=== PATIENT | male | born 1995 | race Caucasian/White ===

== ENCOUNTER 2022-09-24 17:50 | Emergency (ER) | payer MEDICAID, SELFPAY ==
[2022-09-24 17:52] VITALS: BP 127/94; PULSE 88; RESP 14; TEMP 36.1; O2SAT 99
--- NOTE | 2022-09-24 18:43 | EKG12_ITS ---
Test Reason : Blood Pressure : / mmHG Vent. Rate : 083 BPM Atrial Rate : 083 BPM P-R Int : 158 ms QRS Dur : 110 ms QT Int : 396 ms P-R-T Axes : 029 058 025 degrees QTc Int : 465 ms Normal sinus rhythm Normal ECG Confirmed by DAVID ROBB, EVELYN ([id number]), online content editor ASAD CONTI ([id number]) on 09/25/2022 11:28:45 AM Referred By: NATACHA Confirmed By:EVELYN HERNANDEZ MD
--- NOTE | 2022-09-24 18:44 | EX.ED.DYSGE1 ---
HPI History of Present Illness Chief Complaint: Syncope Detail of Chief Complaint: Syncope Informant: patient Narrative Narrative: That Kahlil presents to the emergency department after sustaining a syncopal episode while at home. 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 Patient had not eaten today. He remembers driving home and talking to his grandmother on the phone and felt perfectly fine until he got home. When he got out of the vehicle he noted that he felt lightheaded and somewhat nauseated. Patient felt like he was dehydrated so he went upstairs and got a couple water and then got some fresh water in it. Patient then felt more nauseated and went to the bathroom where he vomited into the toilet and then remembers waking up on the floor. Patient was found by girlfriend and family members who called squad. They noted that there was blood in the toilet. Patient tells me that he feels fine and he has not been ill leading up to today. He denies any abdominal pain. He had no further vomiting. Patient has had 1 other episode of syncope when he was young child and they attributed to dehydration. Patient denies chest pain or racing heart. Prior similar symptoms: Yes PFSH PFSH Medical History (Updated 09/24/22 @ 20:[address] Austin Kerns, DO) Torsion, testicular Home Medications No Known/Unobtainable [No Known Home Medications] 06/26/16 [History Last Taken Unknown] Allergy/AdvReac Type Severity Reaction Status Date / Time No Known Allergies Allergy Verified 09/24/22 17:51 Surgical History (Updated 09/24/22 @ 18:21 by Janay Sanders) Hx of tonsillectomy Social History Smoking Status: Never smoker ROS ROS ED Review of Systems ROS Unobtainable: other Constitutional Constitutional ED: Reports lethargy; Denies chills, fever(s), sweats or weight loss Eyes Eyes: Denies blurry vision, change in vision or diplopia ENT ENT ED: Denies rhinorrhea or sore throat Cardiovascular Cardiovascular: Denies chest pain, orthopnea or racing heartbeat Respiratory/Chest Respiratory/Chest: Denies cough, dyspnea, dyspnea on exertion, orthopnea or sputum Gastrointestinal Gastrointestinal: Reports nausea and vomiting; Denies abdominal pain or diarrhea Genitourinary Genitourinary ED: Denies dysuria, hematuria or urinary frequency Musculoskeletal Musculoskeletal: Denies arthralgias, back pain, myalgias or neck pain Integumentary Denies abscess, Abrasions or rash Neurologic Neurologic: Reports other Details: Syncopal episode ; Denies headache(s) or weakness Psychiatric Psychiatric: Denies anxiety, depression or suicidal thoughts Endocrine Endocrinology: Denies polydipsia, polyphagia or polyuria Hematologic/Lymphatic Hematologic/Lymphatic: Denies easy bleeding, easy bruising or lymphadenopathy Allergic/Immunologic Allergic/Immunologic ED: Denies mouth swelling, tongue swelling or urticaria EXAM Physical Exam Const Vital Signs: 09/24/22 17:52 09/24/22 18:22 09/24/22 20:08 Temperature 97 F L Temperature Source Temporal Pulse Rate 88 Pulse Rate [Lying] 80 Pulse Rate [Sitting (for 1 minute prior to obtaining)] 82 Pulse Rate [Standing (for 1 minute prior to obtaining)] 84 Respiratory Rate 14 Respiratory Pattern Normal Blood Pressure 127/94 H Blood Pressure [Lying] 109/68 Blood Pressure [Sitting (for 1 minute prior to obtaining)] 113/72 Blood Pressure [Standing (for 1 minute prior to obtaining)] 109/73 Blood Pressure Mean 105 Blood Pressure Mean [Lying] 81 Blood Pressure Mean [Sitting (for 1 minute prior to obtaining)] 85 Blood Pressure Mean [Standing (for 1 minute prior to obtaining)] 85 Pulse Ox 99 Oxygen Delivery Method Room Air Positive well nourished and well developed General Appearance ED: well developed and NAD HEENT Reports TM's clear and moist mucous membranes normocephalic and atraumatic; Negative for trauma or tenderness Tympanic Membrane ED: Yes TM's clear Eyes PERRL and EOMs intact bilaterally General Eye ED: Negative for pale conjunctiva or scleral icterus Neck no lymphadenopathy, supple and no JVD General: Negative for tenderness Chest Wall inspection of chest normal and palpation of chest normal Chest: Negative for tenderness Resp normal respiratory effort and clear to auscultation bilaterally Effort and Inspection: Negative for respiratory distress or pain with movement Auscultation: Negative for rhonchi, wheezes or diminished lung sounds Cardio regular rate, regular rhythm, S1 normal heart sound, S2 normal heart sound and no murmurs Peripheral Pulses: pulses 2+ throughout GI normal to inspection, nondistended, normoactive bowel sounds, soft to palpation, non-tender, non-distended and no masses Back/Spine no CVA tenderness and no thoracic nor lumbar tenderness Extremity normal to inspection General Extremety ED: Negative for edema General Extremity: Negative for edema Neuro oriented x3, CN's II-XII intact bilaterally, no sensory deficits noted and gait normal Sensorium / Orientation: awake, alert, oriented to person, oriented to place and oriented to time Motor Exam: strength 5/5 throughout and strength abnormal Psych mental status grossly normal Skin no rashes or lesions noted and no wounds MDM MDM MDM Narrative Medical decision making narrative: IV line established on arrival. Patient placed on classroom monitor. EKG obtained showed sinus rhythm with ventricular rate of 83 bpm with no acute ST segment changes. Patient had a syncopal episode after urinating and vomiting. I suspect he likely had a Ruthie-Ruiz tear. Suspect likely this is vasovagal. Patient did have some basic labs CBC with differential showed a white count 11.4 which I think is reactive. Hemoglobin was 15 and hematocrit was 47. Platelets 343. Chemistries unremarkable. We did do orthostatic vital signs and they were negative. I did give him a liter normal same fluid bolus. Patient feeling well. I feel he can be discharged to home. Patient advised to push fluids. I suspect vasovagal syncope. Lab Data Attestation: I reviewed the patient's lab results. Labs: Laboratory Results - last 24 hr 09/24/22 09/24/22 18:50 18:50 WBC 11.4 H RBC 5.53 Hgb 16.1 Hct 47.7 MCV 86.3 MCH 29.1 MCHC 33.8 RDW Std Deviation 37.5 RDW Coeff of Erin 11.9 Plt Count 343 MPV 8.5 Immature Gran % (Auto) 0.700 Neut % (Auto) 80.4 H Lymph % (Auto) 12.6 L [place] % (Auto) 4.5 Eos % (Auto) 0.7 Baso % (Auto) 1.1 H Absolute Neuts (auto) 9.2 H Absolute Lymphs (auto) 1.43 Nucleated RBC % 0 Sodium 145 Potassium 4.0 Chloride 108 H Carbon Dioxide 31.0 Anion Gap 6 BUN 10 Creatinine 1.01 Est GFR (MDRD) Af Amer 113 Est GFR (MDRD) Non-Af 94 BUN/Creatinine Ratio 9.9 L Glucose 101 Calcium 9.8 EKG Initial EKG: Attestation: I personally reviewed and interpreted this EKG as follows: Comments: Sinus rhythm with a ventricular rate of 83 bpm with no acute ST segment changes Discharge Plan Triage Chief Complaint: Syncope ED Provider: Austin Kerns Dx/Rx/DC Orders Clinical Impression: Syncope, vasovagal, Ruthie-Ruiz tear Instructions: Ruthie-Ruiz Tear, ED Fainting, Vagal Reaction Prescriptions: No Action No Known Home Medications Primary Care Provider: Rod Skinner Referrals: Rod Skinner MD [Primary Care Provider] - Van Tran MD [Med Staff - Electronics Mechanic] - 3-5 Days Disposition Disposition: Home, Self Care
[2022-09-24] MEDS: 0.9% Normal Saline 1,000 ML 1000 ML IV (18:56)
[2022-09-24 19:11] LABS: Absolute Lymphocyte Count 1.43 X10^3/uL (0.83-4.51); Absolute Neutrophil Count 9.2 X10^3/uL (2.0-7.7); Basophil# 0.12 X10^3/uL; Basophil% 1.1 % (0-1); Eosinophil# 0.08 X10^3/uL; Eosinophils% 0.7 % (0-5); Hematocrit 47.7 % (40-54); Hemoglobin 16.1 g/dL (13.0-16.5); Lymphocyte # 1.43 X10^3/ul (0.83-4.51); Lymphocyte % 12.6 % (19-41); Mean Corp Hgb Conc 33.8 g/dL (32-36); Mean Corpuscular Hgb 29.1 pg (27.0-32.0); Mean Corpuscular Volume 86.3 fL (80-94); Mean Platelet Vol. 8.5 fl (6.2-12.0); Monocyte# 0.51 X10^3/uL; Monocyte% 4.5 % (0-10); NRBC Flagged by Analyzer 0 % (0-5); Neutrophil # 9.15 X10^3/uL (2.7-7.7); Neutrophil % 80.4 % (47-70); Platelet Count 343 K/mm3 (150-450); RBC Distribution Width CV 11.9 % (11.6-14.6); RBC Distribution Width SD 37.5 fl (35.1-43.9); Red Blood Count 5.53 M/mm3 (4.6-6.2); White Blood Count 11.4 K/mm3 (4.4-11.0)
[2022-09-24 19:19] LABS: Anion Gap 6 (5-15); BUN 10 mg/dL (7-18); BUN/Creat Ratio 9.9 RATIO (10-20); Calcium,Total 9.8 mg/dL (8.5-10.1); Chloride 108 mmol/L (98-107); Creatinine, Serum 1.01 mg/dL (0.70-1.30); EST Glomerular Filtration Rate 94 mL/min (>60); Est Glom Filt Rate - Afr Amer 113 mL/min (>60); Glucose 101 mg/dL (74-106); Sodium Level 145 mmol/L (136-145)
[2022-09-24 20:08] VITALS: BP 109/68; BP 109/73; BP 113/72; PULSE 80; PULSE 82; PULSE 84
[2022-09-24 20:50] VITALS: BP 115/70; PULSE 82; RESP 16; O2SAT 97
== END 2022-09-24 20:52 | disposition home or self-care (01) ==
PROVIDERS: Emergency Provider Emergency Medicine; PCP Family Medicine; Visit Provider Emergency Medicine
DX: R55 Syncope and collapse (principal); R11.10 Vomiting, unspecified; K22.6 Gastro-esophageal laceration-hemorrhage syndrome; E86.0 Dehydration
CPT/HCPCS: 80048; 85025; 93005; 96360; 96361; 99285; J7030; A4216